=== PATIENT | male | born 1975 | race Caucasian/White ===

== ENCOUNTER 2016-09-10 10:49 | Emergency (ER) | payer OTHER ==
[2016-09-10 10:55] VITALS: BP 158/81; PULSE 87; TEMP 98; BMI 29.8
[2016-09-10] MEDS ORDERED: FLUORESCEIN NA 1 EA STRIP ONE (11:36)
[2016-09-10] MEDS ORDERED: DIPHTH,PERTUSS(ACELL),TET 0.5 ML DISP.SYRIN IM ONE (11:48)
--- NOTE | 2016-09-10 11:55 | PDOC ---
History of Present Illness - General Chief Complaint: Eye Problem Stated Complaint: RT EYE INJURY, SWOLLEN Time Seen by Provider: 09/10/16 11:24 History Source: Patient Exam Limitations: No Limitations - History of Present Illness Initial Comments: 09/10/16 11:49 41 yr male with pain to right eye after pieces of debris fell in eye yesterday while at work. Pt flushed eye, states symptoms have improved in the past 12hrs was told by PMD to come to ER as pt is a diabetic. tetanus unknown. pt denies vision changes. Past History - Past Medical History Allergies/Adverse Reactions: Allergies Allergy/AdvReac Type Severity Reaction Status Date / Time raspberry [Raspberry] Allergy Difficulty Verified 09/10/16 10:55 Breathing Home Medications: Ambulatory Orders Pantoprazole Sodium [Protonix] 40 mg PO DAILY #14 tablet. 06/01/15 Metformin HCl [Glucophage -] 1,000 mg PO DAILY #30 tablet 03/24/16 Glyburide 5 mg PO DAILY 06/30/16 Sulfacetamide Sodium 10% [Bleph-10 Ophthalmic Solution -] 2 drop OD QID #1 bottle 09/10/16 Anemia: No Diabetes: Yes GI Disorders: Yes (GASTRITIS) - Psycho/Social/Smoking Cessation Hx Anxiety: No Suicidal Ideation: No Smoking Status: No Smoking History: Never smoked Number of Cigarettes Smoked Daily: 0 Information on smoking cessation initiated: No Hx Alcohol Use: Yes (OCCASIONALLY) Drug/Substance Use Hx: Yes Substance Use Type: Marijuana Hx Substance Use Treatment: No Review of Systems - Review of Systems Able to Perform ROS?: Yes Is the patient limited Barbadian proficient: No Constitutional: No: Symptoms Reported HEENTM: Yes: See HPI Respiratory: No: Symptoms reported *Physical Exam - Vital Signs Last Vital Signs Temp Pulse Resp BP Pulse Ox 98 F 87 18 158/81 100 09/10/16 10:52 09/10/16 10:52 09/10/16 10:52 09/10/16 10:52 09/10/16 10:52 - Physical Exam General Appearance: Yes: Nourished, Appropriately Dressed HEENT: positive: EOMI, ARELI, Normal ENT Inspection, TMs Normal, Pharynx Normal, Other (right eye with mild erythema conjunctiva , no tearing ) Neck: positive: Supple Respiratory/Chest: positive: Lungs Clear, Normal Breath Sounds Cardiovascular: positive: Regular Rhythm, Regular Rate Procedures - Eye Procedure Alcaine Drops Administered: Yes (2 drops) Eye Irrigated w/ Saline(Murray Lens): Yes (100cc) Antibiotic Oinment/Drps Admin: right eye Progress: 09/10/16 11:51 neg fluoroscein uptake no FB no corneal abrasion seen Medical Decision Making - Medical Decision Making 09/10/16 11:51 cc: eye injury yesterday 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 here for antibiotic eye drops neg FB , neg abrasion eye irrigated with saline tolerated well will refer to optho for follow up place on belph 10 eye drops 09/10/16 11:52 *DC/Admit/Observation/Transfer Diagnosis at time of Disposition: Eye injury Qualifiers: Encounter type: initial encounter Laterality: right Qualified Code(s): S05.91XA - Unspecified injury of right eye and orbit, initial encounter - Discharge Dispostion Disposition: HOME Condition at time of disposition: Improved - Prescriptions Prescriptions: Sulfacetamide Sodium 10% [Bleph-10 Ophthalmic Solution -] 2 drop OD QID #1 bottle - Referrals Referrals: Lorna Ibanez MD [Staff Physician] - - Patient Instructions Additional Instructions: use the eye drops as prescribed do not rub the eyes take tylenol or motrin as needed for any pain follow with the eye doctor listed below or your eye doctor for follow up Wednesday or Wednesday next week always wear protective eye gear while at work
== END 2016-09-10 12:36 | disposition home or self-care (01) ==
LOC: JERFT 10:49
PROC: 3E1CX8Z Irrigation of Eye using Irrigating Substance (ICD-10-PCS; principal; 2016-09-10)
DX: S05.91XA Unspecified injury of right eye and orbit, initial encounter (principal); X58.XXXA Exposure to other specified factors, initial encounter; Y93.89 Activity, other specified; Y92.89 Other specified places as the place of occurrence of the external cause
CPT/HCPCS: 90715; 99281-25